=== PATIENT | female | born 2000 | race Caucasian/White ===

== ENCOUNTER 2024-09-30 19:07 | Emergency (ER) | payer SELFPAY ==
--- NOTE | 2024-09-30 20:38 | RAD REPORT ---
EXAM: Foot Left 3 View HISTORY: Pain;Swelling COMPARISON: None FINDINGS: Bones: No acute fracture identified. Alignment:No significant malalignment. Degenerative changes:None significant. Other: n/a IMPRESSION: No evidence of acute osseous abnormality involving the imaged foot.
--- NOTE | 2024-09-30 20:39 | RAD REPORT ---
EXAMINATION: Ankle Left 3 View CLINICAL INDICATION: Female, 24 years old. Swelling;Pain COMPARISON: No prior exam. FINDINGS: No acute fracture. No malalignment/dislocation. Tiny dorsal aspect calcaneal spur. Other: n/a IMPRESSION: No acute osseous abnormality.
--- NOTE | 2024-09-30 22:12 | ER ---
Nurse's Notes [facility] Name: Rajesh Peterson Age: 24 yrs Sex: Female : 2000 Arrival Date: 09/30/2024 Time: 19:07 Bed DX4 Private MD: Diagnosis: Sprain of ankle Presentation: 09/30 19:37 Chief complaint: Patient states: Fell down the last step of the stairs. Pt states that cm10 she felt her left ankle twist and felt something crack. Coronavirus screen: Client denies travel out of the [place] in the last 14 days. Ebola Screen: Patient denies travel to an Ebola-affected area in the 21 days before illness onset. No symptoms or risks identified at this time. Initial Sepsis Screen: Does the patient meet any 2 criteria? HR > 90 bpm. Does the patient have a suspected source of infection? No. Patient's initial sepsis screen is negative. Risk Assessment: Do you want to hurt yourself or someone else? Patient reports no desire to harm self or others. Onset of symptoms was September 30, 2024. 19:37 Method Of Arrival: Wheelchair cm10 19:37 Acuity: MARIA ALEJANDRA 4 cm10 Triage Assessment: 19:38 General: Appears in no apparent distress. uncomfortable, Behavior is calm, cooperative. cm10 Neuro: No deficits noted. Level of Consciousness is awake, alert, obeys commands, Oriented to person, place, time, situation, Appropriate for age. Respiratory: No deficits noted. Airway is patent Respiratory effort is even, unlabored, Respiratory pattern is regular, symmetrical. Historical: - Allergies: 19:38 No Known Allergies; cm10 - Home Meds: 19:38 None [Active]; cm10 - PMHx: 19:38 None; cm10 - PSHx: 19:38 section; cm10 - Immunization history:: Adult Immunizations up to date. - Infectious Disease History:: Denies. - Social history:: Smoking status: Patient denies any tobacco usage or history of. Screenin:35 [facility] ED Fall Risk Assessment (Adult) History of falling in the last 3 months, vc1 including since admission No falls in past 3 months (0 pts) Confusion or Disorientation No (0 pts) Intoxicated or Sedated No (0 pts) Impaired Gait Yes (1 pt) Mobility Assist Device Used No (0 pt) Altered Elimination No (0 pt) Score/Fall Risk Level 0 - 2 = Low Risk Oriented to surroundings, Maintained a safe environment, Educated pt \T\ family on fall prevention, incl call for assistance when getting out of bed. Abuse screen: Denies threats or abuse. Nutritional screening: No deficits noted. Tuberculosis screening: No symptoms or risk factors identified. Vital Signs: 19:37 BP 117 / 82; Pulse 105; Resp 15; Temp 97.5(TE); Pulse Ox 98% on R/A; Weight 81.65 kg; cm10 Height 5 ft. 4 in. ; Pain 7/; 19:37 Body Mass Index 30.90 (81.65 kg, 162.56 cm) cm10 19:37 Pain Scale: Adult cm10 ED Course: 19:10 Patient arrived in ED. ra3 19:20 Ronak Carty FNP-C [facility]. dr5 19:20 Victor Hugo Gomez MD is Attending Physician. dr5 19:38 Triage completed. cm10 19:38 Arm band placed on right wrist. Patient placed in waiting room. cm10 20:23 Ankle Left 3 View XRAY In Process Unspecified. EDMS 20:23 Foot Left 3 View XRAY In Process Unspecified. EDMS 22:35 No provider procedures requiring assistance completed. Patient did not have IV access vc1 during this emergency room visit. 22:36 Patient has correct armband on for positive identification. vc1 Administered Medications: No medications were administered Medication: 22:35 VIS not applicable for this client. vc1 Outcome: 22:12 Discharge ordered by . dr5 22:35 Discharged to home via wheelchair, with family, vc1 22:35 Condition: good 22:35 Discharge instructions given to patient, Instructed on discharge instructions, follow up and referral plans. the need for admit, Demonstrated understanding of instructions, follow-up care, medications, 22:36 Patient left the ED. vc1 Signatures: Dispatcher [employer] EDMS Alexandrea Mackey RN RN vc1 Karen Solis RN RN cm10 Ivana Mason ra3 Ronak Carty FNP-C YARD CALLER-Cdr5
[2024-10-01 05:56] VITALS: BP 117/82; TEMP 97.5; O2SAT 98
--- NOTE | 2024-10-01 22:36 | EDPHYS ---
Physician Documentation [facility] Name: Rajesh Peterson Age: 24 yrs Sex: Female : 2000 Arrival Date: 09/30/2024 Time: 19:07 Bed DX4 Private MD: ED Physician Victor Hugo Gomez HPI: 09/30 22:37 This 24 yrs old Female presents to ER via Wheelchair with complaints of Fall dr5 Injury, Ankle Injury - Left, Foot Injury. 22:37 Details of fall: The patient fell from a height, down approximately 1 stairs. Onset: dr5 The symptoms/episode began/occurred acutely. Patient is a 24-year-old female presenting with left ankle pain after inverting it when she stepped wrong on the last step. Pt reports she heard a crack upon stepping and concerned that her foot / ankle might be fractured.. Historical: - Allergies: 19:38 No Known Allergies; cm10 - Home Meds: 19:38 None [Active]; cm10 - PMHx: 19:38 None; cm10 - PSHx: 19:38 section; cm10 - Immunization history:: Adult Immunizations up to date. - Infectious Disease History:: Denies. - Social history:: Smoking status: Patient denies any tobacco usage or history of. ROS: 22:40 Constitutional: as per hpi dr5 Exam: 22:40 Constitutional: This is a well developed, well nourished patient who is awake, alert, dr5 and in no acute distress. Head/Face: Normocephalic, atraumatic. Eyes: Pupils equal round and reactive to light, extra-ocular motions intact. Lids and lashes normal. Conjunctiva and sclera are non-icteric and not injected. Cornea within normal limits. Periorbital areas with no swelling, redness, or edema. ENT: Nares patent. No nasal discharge, no septal abnormalities noted. Tympanic membranes are normal and external auditory canals are clear. Oropharynx with no redness, swelling, or masses, exudates, or evidence of obstruction, uvula midline. Mucous membranes moist. Neck: Trachea midline, no thyromegaly or masses palpated, and no cervical lymphadenopathy. Supple, full range of motion without nuchal rigidity, or vertebral point tenderness. No Meningismus. Chest/axilla: Normal chest wall appearance and motion. Nontender with no deformity. No lesions are appreciated. Cardiovascular: Regular rate and rhythm with a normal S1 and S2. Normal PMI, no JVD. No pulse deficits. Respiratory: Lungs have equal breath sounds bilaterally, clear to auscultation. No rales, rhonchi or wheezes noted. No increased work of breathing, no retractions or nasal flaring. Back: No spinal tenderness. No costovertebral tenderness. Full range of motion. 22:40 Skin: Warm, dry with normal turgor. Normal color with no rashes, no lesions, and no evidence of cellulitis. Neuro: Awake and alert, GCS 15, oriented to person, place, time, and situation. Cranial nerves II-XII grossly intact. Motor strength 5/5 in all extremities. Sensory grossly intact. Cerebellar exam normal. Normal gait. 22:40 Musculoskeletal/extremity: Extremities: ROM: no acute changes, intact in all extremities, Circulation is intact in all extremities. the left lateral ankle and lateral aspect of left foot Weight bearing: able to fully bear weight, without difficulty, Vital Signs: 19:37 BP 117 / 82; Pulse 105; Resp 15; Temp 97.5(TE); Pulse Ox 98% on R/A; Weight 81.65 kg; cm10 Height 5 ft. 4 in. ; Pain 7/10; 19:37 Body Mass Index 30.90 (81.65 kg, 162.56 cm) cm10 19:37 Pain Scale: Adult cm10 Procedures: 22:49 Splinting: using yousif wrap, applied by nurse. Examined by me, post splint application: dr5 neurovascular intact, 2+ distal pulses palpable, brisk capillary refill noted, Patient tolerated well. MDM: 19:21 Medical Screening Exam initiated dr5 22:41 Differential diagnosis: abrasion, contusion, fracture. Data reviewed: vital signs, dr5 nurses notes, radiologic studies, plain films. Care significantly affected by the following Social Determinants of Health: Poor access to healthcare and/or lack of insurance, Poor access to transportation, Problems related to employment. Counseling: I had a detailed discussion with the patient and/or guardian regarding the historical points, exam findings, and any diagnostic results supporting the discharge/admit diagnosis, radiology results, the need for outpatient follow up, for definitive care, a orthopedic surgeon, to return to the emergency department if symptoms worsen or persist or if there are any questions or concerns that arise at home. ED course: Discussed with patient no fracture noted on x-ray. Yousif wrap applied in ER. Recommended patient alternate Tylenol and Motrin as needed for pain and swelling. RICE recommended. All questions answered.. 22:58 Historians other than the Patient: Spouse/Significant Other: . dr5 09/30 19:20 Order name: Ankle Left 3 View XRAY; Complete Time: 20:50 dr5 09/30 19:20 Order name: Foot Left 3 View XRAY; Complete Time: 20:50 dr5 09/30 22:12 Order name: Yousif Wrap; Complete Time: 22:35 dr5 Administered Medications: No medications were administered Disposition Summary: 09/30/24 22:12 Discharge Ordered Notes: Location: Home dr5 Condition: Stable dr5 Diagnosis - Sprain of ankle dr5 Followup: dr5 - With: Emergency Department - When: As needed - Reason: Worsening of condition Followup: dr5 - With: Private Physician - When: 1 - 2 days - Reason: Recheck today's complaints, Continuance of care, Re-evaluation by your physician Discharge Instructions: - Discharge Summary Sheet dr5 - Ankle Sprain, [id number] dr5 Forms: - Medication Reconciliation Form dr5 - Patient Portal Instructions dr5 - Leadership Thank You Letter dr5 Addendum: 10/02/2024 06:43 Co-signature as Attending Physician, Victor Hugo Gomez MD I agree with the assessment and c saavedra plan of care. Signatures: Dispatcher [employer] [facility] Victor Hugo Gomez MD MD cha Martinez, Clarissa RN RN cm10 Ronak Carty, METAL TRADES INSTRUCTOR-C METAL TRADES INSTRUCTOR-Cdr5 Corrections: (The following items were deleted from the chart) 09/30 19:20 19:20 Foot Left 3 View+RAD.RAD.BRZ ordered. [facility] 22:40 22:37 Patient is a 24-year-old female presenting with left ankle pain after inverting dr5 it when she stepped wrong on the last step. dr5
== END 2024-09-30 22:36 | disposition home or self-care (01) ==
LOC: ER 19:07
DX: S93.402A Sprain of unspecified ligament of left ankle, initial encounter (principal)
CPT/HCPCS: 99282